=== PATIENT | male | born 1965 | race Hispanic/Latino ===

== ENCOUNTER 2017-09-21 19:28 | Inpatient (IN) | payer OTHER ==
[2017-09-21] MEDS ORDERED: BOOSTRIX IM ONE (20:19)
[2017-09-21] MEDS ORDERED: TYLENOL PO ONE (20:19)
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
[2017-09-21 21:34] LABS: Basophils % (Auto) 0.3 % (0.0-1.8); Eosinophils % (Auto) 1.5 % (0.0-4.3); Hematocrit 43.4 % (35.5-45.6); Hemoglobin 14.3 gm/dl (11.8-15.2); Mean Corpuscular HGB Conc 33 % (32-34); Mean Corpuscular Hemoglobin 33 pg (28-32); Mean Corpuscular Volume 100 fl (84-94); Platelet Count 308 K/mm3 (140-440); Red Blood Count 4.36 M/mm3 (3.65-5.03); Red Cell Distribution Width 13.3 % (13.2-15.2); White Blood Count 10.5 K/mm3 (4.5-11.0)
[2017-09-21 21:51] LABS: Anion Gap 16 mmol/L; BUN/Creatinine Ratio 14; Blood Urea Nitrogen 10 mg/dL (9-20); Calcium 8.6 mg/dL (8.4-10.2); Carbon Dioxide 29 mmol/L (22-30); Chloride 101.8 mmol/L (98-107); Glucose 108 mg/dL (75-100); Potassium 3.8 mmol/L (3.6-5.0); Sodium 143 mmol/L (137-145)
--- NOTE | 2017-09-21 21:57 | XRay Report ---
FINAL REPORT PROCEDURE: XR ANKLE 2V LT TECHNIQUE: Left ankle, two views HISTORY: left ankle pain COMPARISON: No prior studies are available for comparison. FINDINGS: No acute fracture or dislocation is seen. The ankle mortise and talar dome are intact. IMPRESSION: No acute fracture is seen
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
[2017-09-21] MEDS ORDERED: NORCO 5/325 PO ONE (23:27)
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
[2017-09-22] MEDS ORDERED: BOOSTRIX IM ONE (00:20)
[2017-09-22] MEDS ORDERED: MILK OF MAGNESIA PO PRN (00:42)
[2017-09-22] MEDS ORDERED: ZOFRAN IV PRN (00:42)
[2017-09-22] MEDS ORDERED: TYLENOL PO PRN (00:42)
[2017-09-22] MEDS ORDERED: DULCOLAX PR PRN (00:42)
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
[2017-09-22] MEDS: MORPHINE IV PRN ×2 (01:29→18:01)
[2017-09-22] MEDS ORDERED: MORPHINE ONE (01:32)
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
[2017-09-22] MEDS: LOVENOX SUB-Q SCH (09:43)
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
[2017-09-23 05:25] LABS: Basophils % (Auto) 0.5 % (0.0-1.8); Eosinophils % (Auto) 5.6 % (0.0-4.3); Hematocrit 41.2 % (35.5-45.6); Hemoglobin 13.9 gm/dl (11.8-15.2); Mean Corpuscular HGB Conc 34 % (32-34); Mean Corpuscular Hemoglobin 34 pg (28-32); Mean Corpuscular Volume 101 fl (84-94); Platelet Count 259 K/mm3 (140-440); Red Blood Count 4.09 M/mm3 (3.65-5.03); Red Cell Distribution Width 13.8 % (13.2-15.2); White Blood Count 5.9 K/mm3 (4.5-11.0)
[2017-09-23 05:53] LABS: Anion Gap 15 mmol/L; BUN/Creatinine Ratio 14; Blood Urea Nitrogen 10 mg/dL (9-20); Calcium 8.4 mg/dL (8.4-10.2); Carbon Dioxide 27 mmol/L (22-30); Chloride 104.8 mmol/L (98-107); Glucose 92 mg/dL (75-100); Potassium 4.3 mmol/L (3.6-5.0); Sodium 142 mmol/L (137-145)
[2017-09-23] MEDS: LOVENOX SUB-Q SCH (09:11)
[2017-09-23] MEDS: NORCO 7.5/325 PO PRN (09:59)
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
--- NOTE | 2017-09-24 08:48 | Progress Note ---
Assessment and Plan Assessment and plan: Fracture right proximal fibula and left lateral malleolus X-ray of the bilateral ankles shows a distal left fibula fracture X-ray of the bilateral tib-fib shows a proximal comminuted right fibula fracture and a distal left nondisplaced fibula fracture Orthopedic recommended CAM walking boots both LE's and PT for gait training WBAT [facility] Physical therapy board Orthopedic following Chronic pain Pain control with morphine DVT prophylaxis Lovenox SNF Placement awaiting case management History Interval history: no new issues overnight Hospitalist Physical - Constitutional Vitals: Temp Pulse Resp BP Pulse Ox 97.6 F 58 L 18 118/69 98 09/24/17 07:42 09/24/17 07:42 09/24/17 07:42 09/24/17 07:42 09/24/17 07:42 General appearance: Present: no acute distress, well-nourished - EENT Eyes: Present: PERRL, EOM intact ENT: hearing intact, clear oral mucosa, dentition normal - Neck Neck: Present: supple, normal ROM - Respiratory Respiratory effort: normal Respiratory: bilateral: CTA - Cardiovascular Rhythm: regular Heart Sounds: Present: S1 & S2. Absent: gallop, rub - Extremities Extremities: no ischemia, No edema, Full ROM - Abdominal General gastrointestinal: soft, non-tender, non-distended, normal bowel sounds - Integumentary Integumentary: Present: clear, warm, dry - Neurologic Neurologic: CNII-XII intact, moves all extremities Results - Labs CBC & Chem 7: 09/23/17 04:48 09/23/17 04:48 Labs: Laboratory Last Values WBC 5.9 K/mm3 (4.5-11.0) 09/23/17 04:48 RBC 4.09 M/mm3 (3.65-5.03) 09/23/17 04:48 Hgb 13.9 gm/dl (11.8-15.2) 09/23/17 04:48 Hct 41.2 % (35.5-45.6) 09/23/17 04:48 MCV 101 fl (84-94) H 09/23/17 04:48 MCH 34 pg (28-32) H 09/23/17 04:48 MCHC 34 % (32-34) 09/23/17 04:48 RDW 13.8 % (13.2-15.2) 09/23/17 04:48 Plt Count 259 K/mm3 (140-440) 09/23/17 04:48 Lymph % (Auto) 24.6 % (13.4-35.0) 09/23/17 04:48 [place] % (Auto) 13.5 % (0.0-7.3) H 09/23/17 04:48 Eos % (Auto) 5.6 % (0.0-4.3) H 09/23/17 04:48 Baso % (Auto) 0.5 % (0.0-1.8) 09/23/17 04:48 Lymph # 1.5 K/mm3 (1.2-5.4) 09/23/17 04:48 [place] # 0.8 K/mm3 (0.0-0.8) 09/23/17 04:48 Eos # 0.3 K/mm3 (0.0-0.4) 09/23/17 04:48 Baso # 0.0 K/mm3 (0.0-0.1) 09/23/17 04:48 Seg Neutrophils % 55.8 % (40.0-70.0) 09/23/17 04:48 Seg Neutrophils # 3.3 K/mm3 (1.8-7.7) 09/23/17 04:48 Sodium 142 mmol/L (137-145) 09/23/17 04:48 Potassium 4.3 mmol/L (3.6-5.0) 09/23/17 04:48 Chloride 104.8 mmol/L (98-107) 09/23/17 04:48 Carbon Dioxide 27 mmol/L (22-30) 09/23/17 04:48 Anion Gap 15 mmol/L 09/23/17 04:48 BUN 10 mg/dL (9-20) 09/23/17 04:48 Creatinine 0.7 mg/dL (0.8-1.5) L 09/23/17 04:48 Estimated GFR > 60 ml/min 09/23/17 04:48 BUN/Creatinine Ratio 14 % 09/23/17 04:48 Glucose 92 mg/dL (75-100) 09/23/17 04:48 Calcium 8.4 mg/dL (8.4-10.2) 09/23/17 04:48 Blood Type A POSITIVE 09/21/17 21:16 Antibody Screen Negative 09/21/17 21:16
[2017-09-24] MEDS: LOVENOX SUB-Q SCH (09:38)
[2017-09-24] MEDS: NORCO 7.5/325 PO PRN (09:38)
[2017-09-25 09:17] VITALS: BP 102/71
--- NOTE | 2017-09-25 09:21 | Progress Note ---
Assessment and Plan Assessment and plan: Fracture right proximal fibula and left lateral malleolus X-ray of the bilateral ankles shows a distal left fibula fracture X-ray of the bilateral tib-fib shows a proximal comminuted right fibula fracture and a distal left nondisplaced fibula fracture Orthopedic recommended CAM walking boots both LE's and PT for gait training WBAT Both 's Physical therapy board Orthopedic following Chronic pain Pain control with morphine DVT prophylaxis Lovenox SNF Placement vs Outpatient PT awaiting case management History Interval history: no new issues overnight Hospitalist Physical - Constitutional Vitals: Temp Pulse Resp BP Pulse Ox 97.8 F 90 18 102/71 99 09/25/17 09:14 09/25/17 09:14 09/25/17 09:14 09/25/17 09:14 09/25/17 09:14 General appearance: Present: no acute distress, well-nourished - EENT Eyes: Present: PERRL, EOM intact ENT: hearing intact, clear oral mucosa, dentition normal - Neck Neck: Present: supple, normal ROM - Respiratory Respiratory effort: normal Respiratory: bilateral: CTA - Cardiovascular Rhythm: regular Heart Sounds: Present: S1 & S2. Absent: gallop, rub - Extremities Extremities: no ischemia, No edema, Full ROM - Abdominal General gastrointestinal: soft, non-tender, non-distended, normal bowel sounds - Integumentary Integumentary: Present: clear, warm, dry - Neurologic Neurologic: CNII-XII intact, moves all extremities Results - Labs CBC & Chem 7: 09/23/17 04:48 09/23/17 04:48 Labs: Laboratory Last Values WBC 5.9 K/mm3 (4.5-11.0) 09/23/17 04:48 RBC 4.09 M/mm3 (3.65-5.03) 09/23/17 04:48 Hgb 13.9 gm/dl (11.8-15.2) 09/23/17 04:48 Hct 41.2 % (35.5-45.6) 09/23/17 04:48 MCV 101 fl (84-94) H 09/23/17 04:48 MCH 34 pg (28-32) H 09/23/17 04:48 MCHC 34 % (32-34) 09/23/17 04:48 RDW 13.8 % (13.2-15.2) 09/23/17 04:48 Plt Count 259 K/mm3 (140-440) 09/23/17 04:48 Lymph % (Auto) 24.6 % (13.4-35.0) 09/23/17 04:48 [place] % (Auto) 13.5 % (0.0-7.3) H 09/23/17 04:48 Eos % (Auto) 5.6 % (0.0-4.3) H 09/23/17 04:48 Baso % (Auto) 0.5 % (0.0-1.8) 09/23/17 04:48 Lymph # 1.5 K/mm3 (1.2-5.4) 09/23/17 04:48 [place] # 0.8 K/mm3 (0.0-0.8) 09/23/17 04:48 Eos # 0.3 K/mm3 (0.0-0.4) 09/23/17 04:48 Baso # 0.0 K/mm3 (0.0-0.1) 09/23/17 04:48 Seg Neutrophils % 55.8 % (40.0-70.0) 09/23/17 04:48 Seg Neutrophils # 3.3 K/mm3 (1.8-7.7) 09/23/17 04:48 Sodium 142 mmol/L (137-145) 09/23/17 04:48 Potassium 4.3 mmol/L (3.6-5.0) 09/23/17 04:48 Chloride 104.8 mmol/L (98-107) 09/23/17 04:48 Carbon Dioxide 27 mmol/L (22-30) 09/23/17 04:48 Anion Gap 15 mmol/L 09/23/17 04:48 BUN 10 mg/dL (9-20) 09/23/17 04:48 Creatinine 0.7 mg/dL (0.8-1.5) L 09/23/17 04:48 Estimated GFR > 60 ml/min 09/23/17 04:48 BUN/Creatinine Ratio 14 % 09/23/17 04:48 Glucose 92 mg/dL (75-100) 09/23/17 04:48 Calcium 8.4 mg/dL (8.4-10.2) 09/23/17 04:48 Blood Type A POSITIVE 09/21/17 21:16 Antibody Screen Negative 09/21/17 21:16
[2017-09-25] MEDS: LOVENOX SUB-Q SCH (09:48)
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
== END 2017-09-25 13:30 | disposition home or self-care (01) | DRG 563 ==
LOC: ED 19:28 → 3A 23:58
PROVIDERS: ADMIT Internal Medicine; ATTEND Hospitalist
DX: S82.62XA Displaced fracture of lateral malleolus of left fibula, initial encounter for closed fracture (principal); S82.831A Other fracture of upper and lower end of right fibula, initial encounter for closed fracture; F17.210 Nicotine dependence, cigarettes, uncomplicated; G89.29 Other chronic pain; M54.9 Dorsalgia, unspecified; Z82.49 Family history of ischemic heart disease and other diseases of the circulatory system; Z79.899 Other long term (current) drug therapy; Y93.89 Activity, other specified; Y92.89 Other specified places as the place of occurrence of the external cause; Y99.8 Other external cause status; V29.9XXA Motorcycle rider (driver) (passenger) injured in unspecified traffic accident, initial encounter
CPT/HCPCS: 36415; 70450; 72125; 80048; 85025; 86850; 86900; 86901; 99285; J1650; J2270

== ENCOUNTER 2021-08-29 03:49 | Emergency (ER) | payer SELFPAY ==
[2021-08-29 05:51] LABS: Basophils % (Auto) 0.9 % (0.0-1.8); Eosinophils # (Auto) 0.1 K/mm3 (0.0-0.4); Hematocrit 46.1 % (35.5-45.6); Hemoglobin 14.9 gm/dl (11.8-15.2); Lymphocytes # (Auto) 1.3 K/mm3 (1.2-5.4); Lymphocytes % (Auto) 30.8 % (13.4-35.0); Mean Corpuscular HGB Conc 32 % (32-34); Mean Corpuscular Volume 104 fl (84-94); Monocytes # (Auto) 0.3 K/mm3 (0.0-0.8); Platelet Count 287 K/mm3 (140-440); Red Blood Count 4.46 M/mm3 (3.65-5.03)
[2021-08-29 06:06] LABS: Blood Urea Nitrogen 9 mg/dL (9-20); Calcium 8.5 mg/dL (8.4-10.2); Hemolysis Index 8
[2021-08-29 06:07] LABS: BUN/Creatinine Ratio 13
--- NOTE | 2021-08-29 06:24 | Emergency Department Report ---
HPI - General Chief Complaint: Alcohol Time Seen by Provider: 08/29/21 06:11 - HPI HPI: Room 4 The patient is a 56-year-old male present with a chief complaint of alcoholism. The patient was brought to emergency department by police but no report was marlyu clayton. The patient states he came to the emergency department because he has been depressed and has been falling apart and he needs help with alcohol. The patient states he was going to lay down in the street or parking lot. When asked if he was having thoughts of hurting himself the patient denies it. ED Past Medical Hx - Surgical History Additional Surgical History: Right lower extremity fracture repair - Family History Family history: no significant - Social History Smoking Status: Current Every Day Smoker (1/2 pack per) Substance Use Type: None (Denies illicit drug use), Alcohol ("Couple beers" daily) - Medications Home Medications: Home Medications Medication Instructions Recorded Confirmed Last Taken Type Cyclobenzaprine [Flexeril 10 MG 10 mg PO TID PRN #30 tablet 04/07/16 Unknown Rx TAB] HYDROcodone/APAP 5-325 [[place] 1 each PO Q6HR PRN #20 tablet 04/07/16 Unknown Rx 5-325 mg TAB] Ibuprofen [Motrin 600 MG tab] 600 mg PO Q8H PRN #40 tablet 04/07/16 Unknown Rx HYDROcodone/APAP 7.5-325 [[place] 1 each PO Q6H PRN #30 tablet 09/25/17 Unknown Rx 7.5-325 mg TAB] ED Review of Systems ROS: Stated complaint: ETOH Other details as noted in HPI Constitutional: no symptoms reported Eyes: denies: eye pain ENT: denies: throat pain Respiratory: no symptoms reported Cardiovascular: denies: chest pain Endocrine: no symptoms reported Gastrointestinal: denies: abdominal pain Genitourinary: denies: urgency Musculoskeletal: denies: back pain Neurological: denies: headache Psychiatric: depression. denies: suicidal thoughts Physical Exam - Physical Exam Vital Signs: Vital Signs 08/29/21 08/29/21 08/29/21 04:15 04:18 04:31 Temperature 97.8 F Pulse Rate 64 69 60 Respiratory 15 14 14 Rate Blood Pressure 129/79 129/79 Blood Pressure 129/79 [Right] O2 Sat by Pulse 94 95 94 Oximetry 08/29/21 08/29/21 08/29/21 04:45 05:01 05:15 Temperature Pulse Rate 64 62 62 Respiratory 15 14 16 Rate Blood Pressure 129/79 104/67 104/67 Blood Pressure [Right] O2 Sat by Pulse 95 96 96 Oximetry 08/29/21 05:45 Temperature Pulse Rate 72 Respiratory 12 Rate Blood Pressure 104/67 Blood Pressure [Right] O2 Sat by Pulse 96 Oximetry Physical Exam: GENERAL: The patient is well-developed well-nourished male lying on stretcher not appearing to be in acute distress. [] HEENT: Normocephalic. Atraumatic. Extraocular motions are intact. Patient has moist mucous membranes. NECK: Supple. Trachea midline CHEST/LUNGS: Clear to auscultation. There is no respiratory distress noted. HEART/CARDIOVASCULAR: Regular. There is no tachycardia. There is no gallop rub or murmur. ABDOMEN: Abdomen is soft, nontender. Patient has normal bowel sounds. There is no abdominal distention. SKIN: There is no rash. There is no edema. There is no diaphoresis. NEURO: The patient is awake, alert, and oriented. The patient is cooperative. The patient has no focal neurologic deficits. The patient has normal speech. GCS 15 MUSCULOSKELETAL: There is no evidence of acute injury. ED Course Vital Signs 08/29/21 08/29/21 08/29/21 04:15 04:18 04:31 Temperature 97.8 F Pulse Rate 64 69 60 Respiratory 15 14 14 Rate Blood Pressure 129/79 129/79 Blood Pressure 129/79 [Right] O2 Sat by Pulse 94 95 94 Oximetry 08/29/21 08/29/21 08/29/21 04:45 05:01 05:15 Temperature Pulse Rate 64 62 62 Respiratory 15 14 16 Rate Blood Pressure 129/79 104/67 104/67 Blood Pressure [Right] O2 Sat by Pulse 95 96 96 Oximetry 08/29/21 05:45 Temperature Pulse Rate 72 Respiratory 12 Rate Blood Pressure 104/67 Blood Pressure [Right] O2 Sat by Pulse 96 Oximetry ED Medical Decision Making - Lab Data Result diagrams: 08/29/21 05:27 08/29/21 05:27 - Differential Diagnosis Alcoholism, depression Critical care attestation.: If time is entered above; I have spent that time in minutes in the direct care of this critically ill patient, excluding procedure time. ED Disposition Clinical Impression: Alcohol abuse Disposition: HOME / SELF CARE / HOMELESS Is pt being admited?: No Does the pt Need Aspirin: No Condition: Stable Instructions: Alcohol Use Disorder Additional Instructions: Professional and Agency Contacts To help [facility] Crises(24/04) [place] Crisis Line: Suicide Prevention Line: Crisis Text Line: Text START to 279599 Emergency: 911 Outpatient COMMUNITY Behavioral Health Resources: JOAQUÍN: [facility] [address] [place], [place] [address] JOSE ANTONIO: [facility] [address] [place] [address] OMAR: [facility] - [address] [place] [address] Monday thru Monday - 8am - 5pm [place]: [facility] Address: [address] [place] [address] SINGH: [facility] Address: [address] [place] [address] Monday thru Monday- 7am-2pm [facility] Address: [address] [place] [address] Monday thru Monday: 8:30AM-5PM In case of an emergency, please contact the following numbers: [place] Crisis and Access Line: Number: Crisis Text Line: (Text START) Number: 893919 Suicide Prevention Line: Number: Emergency Number: 911 SUBSTANCE ABUSE PROGRAMS: [facility]: Location: [place], [place] [facility]! Address: [address] [place] [address] [facility] Address: [address] [place] [address] [facility] Adult Rehabilitation: Address: [address] [place] [address] [facility] Community: Address: [address] [place] [address] [facility] Address: [address] [place] [address]. Please contact above numbers to attempt placement into free based program. Medicaid Programs: [facility]: Address: [address] [place] [address] [facility]: Address: [address] [place] [address] HOMELESS RESOURCES: [facility] NEED HELP? If you are in need of help or know someone who does, please contact us at [email or web address] or call , or come to our offices at [address] [place] [address], Monday-Monday beginning at 8AM. [facility] Males only Admission at 7am Mon to Mon Address: [address] [place] [address] Client Engagement Center [phone] Regular program admission occurs Monday through Monday at 7:00 am and operates on a first come, first serve basis. Because we cant anticipate program availability in advance and program spots are in high demand, we recommend arriving early. Space fills up fast! Next steps can include: Assignment to a [facility] program bed Connection to and placement in a partner program, or Referral to a partner agency [facility] [place] Admission at 4:30pm daily\\ Address: [address] [place] [address] [facility] Services Admission from 8am to 10am Daily No intake until 09/28/20 Address: [address] [place] [address] Referrals: ASHU BEMREO MD [Staff Physician] - 3-5 Days PRIMARY CAREMD [Primary Care Provider] - 3-5 Days
--- NOTE | 2021-08-29 06:26 | Cat Scan Report ---
CT HEAD WITHOUT CONTRAST INDICATION / CLINICAL INFORMATION: AMS. TECHNIQUE: All CT scans at this location are performed using CT dose reduction for ALARA by means of automated exposure control. COMPARISON: 09/21/17. FINDINGS: HEMORRHAGE: None. EXTRA-AXIAL SPACES: Normal in size and morphology for the patient's age. VENTRICULAR SYSTEM: Normal in size and morphology for the patient's age. CEREBRAL PARENCHYMA: No significant abnormality. No acute territorial infarct. MIDLINE SHIFT / HERNIATION: None. CEREBELLUM / BRAINSTEM: No significant abnormality. ORBITS: Normal as visualized. SOFT TISSUES: No significant abnormality. SKULL: No significant abnormality. PARANASAL SINUSES / MASTOID AIR CELLS: Normal as visualized. ADDITIONAL FINDINGS: None. IMPRESSION: No acute abnormality or significant change. Signer Name: Willard Vergara MD Signed: 08/29/2021 6:22 AM Workstation Name: [id number]
--- NOTE | 2021-08-29 06:35 | Cat Scan Report ---
CT OF THE ABDOMEN AND PELVIS WITHOUT CONTRAST INDICATION / CLINICAL INFORMATION: AMS. TECHNIQUE: All CT scans at this location are performed using CT dose reduction for ALARA by means of automated exposure control. COMPARISON: None available. FINDINGS: ABDOMEN: There are a few clustered calculi in the left mid kidney, the largest of which measures 11 m m. There is a 1 mm calculus in the right mid kidney. There is a 2.6 cm ovoid hyperdense lesion in the upper pole of the left kidney centrally, measuring approximately 62 Hounsfield units. There is no ev idence of hydronephrosis or perinephric soft tissue stranding. There is a calcified granuloma in the posterior segment of the right lobe of the liver. The gallbladd er, bile ducts, pancreas, spleen, adrenal glands and bowel are normal. There are moderate atheroscler otic calcifications involving aorta without aneurysm. No adenopathy is seen. Is mild bibasilar depend ent atelectasis. PELVIS: The prostate gland is mildly enlarged. The distal ureters and urinary bladder are normal. A n ormal appendix is present. There are a few scattered sigmoid diverticula without acute inflammation. No abnormal mass or fluid collection is seen. There is a high riding right testicle. I do not identif y a hernia. Multiple mild compression fractures in the spine are probably old. 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 IMPRESSION: 1. Bilateral nonobstructive nephrolithiasis, greater on the left. 2. 2.6 cm hyperdense lesion in the upper pole the left kidney centrally. Nonemergent multiphase CT of the kidneys may be helpful in further characterization. 3. High riding right testicle versus cryptorchidism. Signer Name: Willard Vergara MD Signed: 08/29/2021 6:30 AM Workstation Name: [id number]
[2021-08-29 10:37] VITALS: BP 116/85
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
--- NOTE | 2021-08-30 08:33 | Emergency Department Report ---
Blank Doc - Documentation Documentation: This morning, patient is resting. He states that he still feels terrible. He is not actively suicidal. Patient has minimal tremor noted. He does complaining of right hand pain where he punched a wall. No radiographs have been obtained. These were ordered. Patient also complains of very poor dentition and was noted to have poor dentition with significant caries. There is no gingival erythema or edema. Patient will be placed in the psychiatric area pending psychiatric disposition. X-rays of the right hand can be obtained. He was started empirically on penicillin due to diffuse dental disease with concern for apical alveolar abscesses. 0945-radiographs have been noted. There is no acute fracture. Patient is awaiting a psychiatric disposition.
[2021-08-30] MEDS ORDERED: PENICILLIN V POTASSIUM 250 MG TAB PO NR (09:00)
--- NOTE | 2021-08-30 09:27 | XRay Report ---
XR hand 3+V RT INDICATION: ulnar pain/deformity. COMPARISON: None available. FINDINGS: There is no acute fracture or subluxation. There is a chronic fracture of the fifth metacarpal shaft with residual dorsal apex angulation. 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 Signer Name: Jimenez Valadez MD Signed: 08/30/2021 9:22 AM Workstation Name: [id number]
--- NOTE | 2021-08-30 11:04 | Progress Note ---
Subjective - Reason for Consult Consult date: 08/30/21 Reason for consult: Alcohol use - Chief Complaint Chief complaint: The patient was seen today. The patient denies any current suicidal/homicidal and denies hallucinations. He presents with mild tremor. REVIEW OF SYSTEMS Constitutional: Negative for weight loss ENT: Negative for stridor Respiratory: Negative for cough or hemoptysis All other systems reviewed and are negative MENTAL STATUS EXAMINATION General Appearance and Behavior: Age appropriate, dressed appropriately, calm and uncooperative Cooperation: cooperative Psychomotor Behavior: psychomotor normal Mood:Depressed Affect and affective range: congruent with stated mood Thought Process: goal oriented Thought Content: Not suicidal Speech: Normal Suicidal Ideation: Denies Homicidal Ideation: Denies Hallucinations: Denies Delusions: None elicited Impulse Control: Unimpaired Insight and Judgment: limited insight and fair judgment, Memory: Normal Attention: divided Orientation: Alert, oriented Assessment and Plan (1) Alcohol use disorder (2) Treatment plan Discontinue 1013 Continue CIWA protocol Continue previous prescribed meds Risks, benefits and alternatives of medications discussed with the patient, questions answered and consent obtained from patient. PSYCHOTHERAPY: Supportive psychotherapy provided MEDICAL: Per primary team DELIRIUM PRECAUTIONS: Please re-orient patient frequently, keep lights on during the day, and minimize benzodiazepines and opiates as these medications could worsen patient's confusion. SERVICE LIAISON REPRESENTATIVE: Per medical team DISPOSITION:Do not recommend acute inpatient psychiatric hospitalization. Will sign off. Thank you for the consult. Please contact with any questions and/or concerns. Case staffed with Dr. Hairston Medications and Allergies Mental Status Exam - Vital signs Last Vital Signs Temp 98.0 F 08/29/21 10:37 Pulse 88 08/29/21 08:31 Resp 15 08/29/21 08:31 BP 116/85 08/29/21 08:47 Pulse Ox 97 08/29/21 08:47
== END 2021-08-30 16:33 | disposition home or self-care (01) ==
LOC: ED 03:49
DX: F32.9 Major depressive disorder, single episode, unspecified (principal); F10.20 Alcohol dependence, uncomplicated; F17.200 Nicotine dependence, unspecified, uncomplicated; N20.0 Calculus of kidney; Z20.822 Contact with and (suspected) exposure to COVID-19
CPT/HCPCS: 36415; 70450; 73130; 74176; 80048; 85025; 99285; U0003; 80320; G0480